=== PATIENT | male | born 1985 | race Caucasian/White ===

== ENCOUNTER 2018-10-14 12:10 | Emergency (ER) | payer SELFPAY ==
[2018-10-14 12:26] VITALS: BP 157/79
[2018-10-14] MEDS ORDERED: Azithromycin TAB* 250 MG PO ONE (12:42)
--- NOTE | 2018-10-14 12:42 | UC ---
General HPI - HPI Summary HPI Summary: pt's girlfriend just tested + for chlamydia. pt denies any urethral discharge or pain but would like to be tx. girlfriend at bedside states she got tested for "everything" on her routine [employer] exam but had no s/s's. only the chlamydia was + and she was tx. - History of Current Complaint Chief Complaint: UCSTDScreening Stated Complaint: PERSONAL Time Seen by Provider: 10/14/18 12:32 Hx Obtained From: Patient Pain Intensity: 0 Associated Signs & Symptoms: Negative: Abdominal Pain, Dysuria, Fever - Allergy/Home Medications Allergies/Adverse Reactions: Allergies Allergy/AdvReac Type Severity Reaction Status Date / Time Penicillins Allergy Severe sweating, Verified 10/14/18 12:23 difficulty breathing. Home Medications: Home Medications NK [No Home Medications Reported] 10/14/18 [History Confirmed 10/14/18] PMH/Surg Hx/FS Hx/Imm Hx Previously Healthy: Yes - Surgical History Surgical History: Yes Surgery Procedure, Year, and Place: Appendectomy, 2007, [facility] - Family History Known Family History: Positive: None Negative: Cardiac Disease, Hypertension, Diabetes - Social History Occupation: Employed Full-time Alcohol Use: Daily Alcohol Amount: 2-3 times a week Substance Use Type: None Smoking Status (MU): Heavy Every Day Tobacco Smoker Type: Cigarettes Amount Used/How Often: 1 ppd Length of Time of Smoking/Using Tobacco: 9 Years Have You Smoked in the Last Year: Yes Household Exposure Type: Cigarettes - Immunization History Most Recent Influenza Vaccination: none Review of Systems All Other Systems Reviewed And Are Negative: Yes Constitutional: Positive: Negative Skin: Positive: Negative Eyes: Positive: Negative ENT: Positive: Negative Respiratory: Positive: Negative Cardiovascular: Positive: Negative Gastrointestinal: Positive: Negative Genitourinary: Positive: Negative Motor: Positive: Negative Neurovascular: Positive: Negative Musculoskeletal: Positive: Negative Neurological: Positive: Negative Psychological: Positive: Negative Physical Exam Triage Information Reviewed: Yes Appearance: Well-Appearing Vital Signs: Initial Vital Signs Temp 97.2 F 10/14/18 12:22 Pulse 104 10/14/18 12:22 Resp 16 10/14/18 12:22 BP 157/79 10/14/18 12:22 Pulse Ox 98 10/14/18 12:22 Vital Signs Reviewed: Yes Eyes: Positive: Conjunctiva Clear ENT: Positive: Normal ENT inspection Neck: Positive: Supple, Nontender, No Lymphadenopathy Respiratory: Positive: Lungs clear, Normal breath sounds Cardiovascular: Positive: RRR, No Murmur Abdomen Description: Positive: Nontender, No Organomegaly, Soft. Negative: Distended Bowel Sounds: Positive: Present Male Genital Exam: Positive: Other - exam declined by pt due to lack of s/s's Musculoskeletal: Positive: ROM Intact Neurological: Positive: Alert Psychological: Positive: Normal Response To Family, Age Appropriate Behavior Skin Exam: Normal Course/Dx - Course Course Of Treatment: pt declined any additional testing because his girlfriend is negative for all others. pt only wants tx for chlamydia based on girlfriends test results. pt denies hx HTN, states BP elevated because he partied late last pm. - Diagnoses Provider Diagnosis: Chlamydia contact, treated Discharge - Sign-Out/Discharge Documenting (check all that apply): Patient Departure All imaging exams completed and their final reports reviewed: No Studies - Discharge Plan Condition: Stable Disposition: HOME Patient Education Materials: Sexually Transmitted Diseases (ED), Hypertension ( ED) Referrals: BOYD Frankel [Medical Doctor] - As Soon As Possible Additional Instructions: FOLLOW UP WITH [facility] OR A PRIMARY CARE OF YOUR CHOICE FOR BP RECHECK. - Billing Disposition and Condition Condition: STABLE Disposition: Home - Attestation Statements Provider Attestation: I was available for consult. This patient was seen by the [facility]. The patient was not presented to, seen by, or examined by me. EK
== END 2018-10-14 12:57 | disposition home or self-care (01) ==
LOC: UCCORT 12:10
DX: Z20.2 Contact with and (suspected) exposure to infections with a predominantly sexual mode of transmission (principal); Z88.0 Allergy status to penicillin; F17.210 Nicotine dependence, cigarettes, uncomplicated
CPT/HCPCS: 99212; A9270-GY; G0463

== ENCOUNTER 2019-08-18 17:59 | Emergency (ER) | payer SELFPAY ==
[2019-08-18 18:40] VITALS: BP 142/73
[2019-08-18] MEDS ORDERED: Fluorescein Sodium TOPICAL* 1 MG TEST STRIP OPHTHALMIC ONE (18:48)
[2019-08-18] MEDS ORDERED: Tetracaine 0.5% OPTH.SOL 4 ML* 1 DROP BTL BOTH EYES ONE (18:48)
--- NOTE | 2019-08-18 19:00 | UC ---
Eye Complaint HPI - HPI Summary HPI Summary: Started last night with irritation OS like something was in the eye. Has had eye lashes in the eye before. Did have crusting discharge this morning. - History of Current Complaint Chief Complaint: UCEye Stated Complaint: LEFT EYE COMPLAINT Time Seen by Provider: 08/18/19 18:47 Hx Obtained From: Patient Onset/Duration: Sudden Onset, Lasting Days - 1, Worse Since - onset Timing: Constant Severity Initially: Mild Severity Currently: Mild Pain Intensity: 0 Location of Injury: Conjunctiva, Eye Lid (upper) - some swelling OS Character: Foreign Body Sensation Aggravating Factor(s): Blinking Alleviating Factor(s): Nothing Associated Signs And Symptoms: Positive: Drainage (Purulent), Swelling - left upper lid Related History: Foreign Body - Risk Factors Penetrating Injury Risk Factor: Negative Globe Rupture Risk Factors: Negative Acute Glaucoma Risk Factors: Negative - Allergies/Home Medications Allergies/Adverse Reactions: Allergies Allergy/AdvReac Type Severity Reaction Status Date / Time Penicillins Allergy Severe sweating, Verified 08/18/19 18:35 difficulty breathing. PMH/Surg Hx/FS Hx/Imm Hx Previously Healthy: Yes - Surgical History Surgical History: Yes Surgery Procedure, Year, and Place: Appendectomy, 2007, [facility] - Family History Known Family History: Positive: None Negative: Cardiac Disease, Hypertension, Diabetes - Social History Occupation: Employed Full-time Lives: With Family Alcohol Use: Occasionally Alcohol Amount: 2-3 times a week Substance Use Type: None Smoking Status (MU): Heavy Every Day Tobacco Smoker Type: Cigarettes Amount Used/How Often: 1 ppd Length of Time of Smoking/Using Tobacco: 9 Years Have You Smoked in the Last Year: Yes Household Exposure Type: Cigarettes - Immunization History Most Recent Influenza Vaccination: none Review of Systems All Other Systems Reviewed And Are Negative: Yes Eyes: Positive: Drainage, Eye Redness Physical Exam Triage Information Reviewed: Yes Appearance: Well-Appearing, No Pain Distress, Obese Vital Signs: Initial Vital Signs Temp 97.1 F 08/18/19 18:36 Pulse 86 08/18/19 18:36 Resp 16 08/18/19 18:36 BP 142/73 08/18/19 18:36 Pulse Ox 97 08/18/19 18:36 Vital Signs Reviewed: Yes Eyes: Positive: Conjunctiva Inflamed - OS>OD, Discharge - OS, Other: - No FB with lid inversion OS. Negative flourescein stain exam OS ENT: Positive: Pharynx normal, TMs normal Neck exam: Normal Respiratory Exam: Normal Cardiovascular Exam: Normal Musculoskeletal Exam: Normal Neurological Exam: Normal Psychological Exam: Normal Skin Exam: Normal Eye Complaint Course/Dx - Differential Dx/Diagnosis Differential Diagnosis/HQI/PQRI: Conjunctivitis, Corneal Abrasion, Foreign Body Provider Diagnosis: Viral conjunctivitis of left eye Discharge ED - Sign-Out/Discharge Documenting (check all that apply): Patient Departure All imaging exams completed and their final reports reviewed: No Studies - Discharge Plan Condition: Stable Disposition: HOME Prescriptions: Erythromycin OPTH OINT* [Erythromycin 0.5% OPTH OINT*] 1 applic LEFT EYE TID # 3.5 gm Patient Education Materials: Conjunctivitis (ED), Erythromycin (Into the eye) Referrals: No Primary Care Phys,NOPCP [Primary Care Provider] - Additional Instructions: EYE OINTMENT USE: Wash hands. Place 1/4" strip across tip of finger. Pull lower lid down with the index finger and stabilize the ointment finger with the middle finger and scrape the ointment off on the lid. Pull the lid out and let go as you look down. - Billing Disposition and Condition Condition: STABLE Disposition: Home
[2019-08-18] MEDS ORDERED: Erythromycin OPTH OINT* APPLIC OINT LEFT EYE ONE (19:31)
== END 2019-08-18 19:43 | disposition home or self-care (01) ==
LOC: UCCORT 17:59
DX: B30.8 Other viral conjunctivitis (principal); Z88.0 Allergy status to penicillin
CPT/HCPCS: 99212; A9270-GY; G0463

== ENCOUNTER 2019-08-21 10:25 | Emergency (ER) | payer SELFPAY ==
[2019-08-21 10:42] VITALS: BP 135/65
--- NOTE | 2019-08-21 10:43 | UC ---
Eye Complaint HPI - HPI Summary HPI Summary: 34 yo male presents with left eye redness and drainage. He tells me that on evening he noticed some left eye itchiness and irritation and was scratching it often. On morning 08/18 he woke up and had swelling, redness, and drainage to his left eye. He was seen here and placed on erythromycin ointment which he has been using as directed since that time. States that his eye swelling and drainage have improved, but still is quite bothersome. He does not wear glasses or contacts. Denies FB in eye - had dye exam performed at last visit and was normal. Denies fever or chills - History of Current Complaint Stated Complaint: LT EYE CONCERN Time Seen by Provider: 08/21/19 10:40 Hx Obtained From: Patient Onset/Duration: Sudden Onset Severity Initially: Moderate Severity Currently: Mild Pain Intensity: 3 Pain Scale Used: 0-10 Numeric - Allergies/Home Medications Allergies/Adverse Reactions: Allergies Allergy/AdvReac Type Severity Reaction Status Date / Time Penicillins Allergy Severe sweating, Verified 08/21/19 10:42 difficulty breathing. PMH/Surg Hx/FS Hx/Imm Hx - Additional Past Medical History Additional PMH: None - Surgical History Surgical History: Yes Surgery Procedure, Year, and Place: Appendectomy, 2007, [facility] - Family History Known Family History: Positive: None Negative: Cardiac Disease, Hypertension, Diabetes - Social History Alcohol Use: Occasionally Alcohol Amount: 2-3 times a week Substance Use Type: None Smoking Status (MU): Heavy Every Day Tobacco Smoker Type: Cigarettes Amount Used/How Often: 1 ppd Length of Time of Smoking/Using Tobacco: 9 Years Have You Smoked in the Last Year: Yes Household Exposure Type: Cigarettes - Immunization History Most Recent Influenza Vaccination: none Review of Systems All Other Systems Reviewed And Are Negative: No Constitutional: Positive: Negative Skin: Positive: Negative Eyes: Positive: Drainage, Eye Redness ENT: Positive: Negative Respiratory: Positive: Negative Cardiovascular: Positive: Negative Neurological: Positive: Negative Psychological: Positive: Negative Physical Exam - Summary Physical Exam Summary: GENERAL: WDWN. No pain distress. SKIN: No rashes, sores, lesions, or open wounds. HEENT: Head: AT/NC Eyes: EOM intact. PERRLA. LEFT EYE: Mild scleral injection. Conjunctiva with mild erythema and inflammation. Mild clear/yellow discharge. RIGHT EYE: Conjunctiva clear without inflammation or discharge. No FBs appreciated Nose: NTTP maxillary and frontal sinus. NECK: Supple. Nontender. No lymphadenopathy. CHEST: No accessory muscle use. Breathing comfortably and in no distress. CV: Pulses intact. Cap refill <2seconds NEURO: Alert. PSYCH: Age appropriate behavior. Triage Information Reviewed: Yes Vital Signs: Vital Signs: Temp Pulse Resp BP Pulse Ox 97.8 F 79 16 135/65 98 08/21/19 10:40 08/21/19 10:40 08/21/19 10:40 08/21/19 10:40 08/21/19 10:40 Vital Signs Reviewed: Yes Eye Complaint Course/Dx - Course Course Of Treatment: Conjunctivitis. Will have him stop the ointment and start cipro eye drops. Recommend f/u with eye doctor if symptoms do not improve within the next 2 days - Differential Dx/Diagnosis Provider Diagnosis: Conjunctivitis Discharge ED - Sign-Out/Discharge Documenting (check all that apply): Patient Departure All imaging exams completed and their final reports reviewed: No Studies - Discharge Plan Condition: Stable Disposition: HOME Prescriptions: Ofloxacin 0.3% (Eye Drop) [Ocuflox OPTH 0.3% (Eye Drop)] 1 - 2 drop LEFT EYE QID #1 btl Patient Education Materials: Conjunctivitis (ED) Referrals: No Primary Care Phys,NOPCP [Primary Care Provider] - Sasha Quintero MD [Medical Doctor] - 1 Week Additional Instructions: If you develop a fever, shortness of breath, chest pain, new or worsening symptoms - please call your PCP or go to the ED immediately. Your blood pressure was high at todays visit. Please see your primary provider within 4 weeks for recheck and re-evaluation. Stop using the ointment. If your symptoms worsen or do not improve within 2 days - please call the eye doctor at the number below to schedule an appointment for further evaluation before the weekend - Billing Disposition and Condition Condition: STABLE Disposition: Home
== END 2019-08-21 10:56 | disposition home or self-care (01) ==
LOC: UCCORT 10:25
DX: H10.9 Unspecified conjunctivitis (principal); F17.210 Nicotine dependence, cigarettes, uncomplicated; Z88.0 Allergy status to penicillin
CPT/HCPCS: 99212; G0463